=== PATIENT | female | born 1940 | race Caucasian/White ===

== ENCOUNTER → 2021-12-21 | Outpatient (CLI) | payer MEDICARE, SELFPAY ==
--- NOTE | 2021-12-21 15:42 | MRI_ITS ---
EXAM: MR HEAD WITHOUT INTRAVENOUS CONTRAST CLINICAL INDICATION: COGNITIVE IMPAIRMENT TECHNIQUE: Multiplanar and multisequence MR images of the brain were obtained without intravenous contrast. Magnetic field strength: 1.5 T. This report was created using [employer] technology. COMPARISON: None. 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 Abnormal T2 signal in the deep cerebral white matter is consistent with small vessel ischemic/degenerative changes. The cerebral and cerebellar sulci are prominent consistent with brain atrophy. No intra- or extra-axial hemorrhage. No intracranial mass or mass effect. Basal cisterns are patent. SELLA: Unremarkable. Normal sella turcica, pituitary gland, infundibular stalk, optic chiasm and hypothalamus. AUDITORY SYSTEM: Unremarkable. The internal auditory canals are patent. BONES/JOINTS: Unremarkable. No discrete lytic or blastic abnormalities. SINUSES: Unremarkable as visualized. Clear. MASTOID AIR CELLS: Unremarkable as visualized. Clear. ORBITS: Unremarkable as visualized. Both globes, extraocular muscles, optic nerves and retrobulbar fat appear unremarkable. VASCULATURE: Unremarkable as visualized. Normal flow voids in the major intracranial circulation. MRI/Brain without Contrast IMPRESSION: 1. 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 2. Small vessel ischemic/degenerative changes. 3. Cerebral and cerebellar atrophy. Electronically Signed: Pato Cervantes MD at 4:08 EDT ,
== END | disposition home or self-care (01) ==
PROVIDERS: PCP Family Medicine; Referring Provider Family Medicine; Visit Provider Family Medicine
DX: R41.89 Other symptoms and signs involving cognitive functions and awareness (principal)
CPT/HCPCS: 70551